=== PATIENT | female | born 1990 | race Caucasian/White ===

== ENCOUNTER 2017-05-10 02:15 | Emergency (ER) | payer OTHER, SELFPAY ==
[2017-05-10 02:17] VITALS: BP 136/72; PULSE 76; RESP 16; TEMP 36.7; O2SAT 100; BMI 25.3
[2017-05-10 02:59] LABS: Mucous, Urine 0 SEEN /hpf (<or=2+); Red Blood Cells-Urine 0 SEEN /hpf (0-5)
[2017-05-10 03:00] LABS: Color, Urine Yellow (Yellow); Glucose, Dipstick Normal (Normal); Ketone-Dipstick Negative (Negative); Leukocyte Esterase-Dipstick 100 /ul (Negative); Nitrite-Dipstick Negative (Negative); Occult Blood-Urine 25 /ul (Negative); Protein-Dipstick Negative (Negative); Urine Bilirubin Dipstick Negative (Negative); Urine Clarity Sl. Cloudy (Clear); Urine Urobilinogen Normal (Normal)
[2017-05-10 03:04] LABS: ALB/GLOB Ratio 1.3 RATIO (0.9-2.4); AST(SGOT) 18 U/L (15-37); Alanine Aminotransfer ALT/SGPT 33 U/L (13-56); Albumin, Serum 4.3 g/dL (3.2-5.0); Alkaline Phosphatase 71 U/L (45-117); Anion Gap 7 (5-15); BUN 15 mg/dL (7-18); BUN/Creat Ratio 16.9 RATIO (10-20); Calcium,Total 9.4 mg/dL (8.5-10.1); Chloride 106 mmol/L (98-107); Creatinine, Serum 0.88 mg/dL (0.55-1.02); EST Glomerular Filtration Rate 81 mL/min (>60); Est Glom Filt Rate - Afr Amer 98 mL/min (>60); Estimated Creatinine Clearance 82.92 ml/min; Globulin 3.3 g/dL (2.2-4.2); Glucose 91 mg/dL (70-110); Lipase 147 U/L (73-393); Protein, Total 7.6 g/dL (6.4-8.2); Sodium Level 142 mmol/L (136-145)
[2017-05-10 03:04] LABS: Internal QC Validated? YES +Cl - CLEAR BKGD; Pregnancy, Urine Negative Negative
[2017-05-10 03:05] LABS: Absolute Neutrophil Count 9.7 X10^3/uL (2.0-7.7); Basophil# 0.02 X10^3/uL; Basophil% 0.2 % (0-1); Eosinophil# 0.11 X10^3/uL; Eosinophils% 0.8 % (0-5); Hematocrit 45.4 % (37-47); Hemoglobin 15.3 g/dl (12.0-15.0); Lymphocyte % 17.8 % (19-41); Mean Corp Hgb Conc 33.7 g/gl (32-36); Mean Corpuscular Hgb 30.2 pg (27.0-32.0); Mean Corpuscular Volume 89.7 fL (81-99); Mean Platelet Vol. 11.1 fl (6.2-12.0); Monocyte# 0.83 X10^3/uL; Monocyte% 6.4 % (0-10); Neutrophil # 9.67 X10^3/uL (2.7-7.7); Neutrophil % 74.6 % (47-70); Platelet Count 162 K/mm3 (150-450); RBC Distribution Width CV 12.3 % (11.6-14.6); RBC Distribution Width SD 39.7 fl (35.1-43.9); Red Blood Count 5.06 M/mm3 (4.2-5.4)
[2017-05-10 03:06] LABS: POSITIVE COUNT NO; POSITIVE DIFFERENTIAL NO; POSITIVE MORPHOLOGY NO
[2017-05-10 03:11] LABS: Bacteria RARE /hpf (None Seen); Squamous Epithelial Cells - UA 0-5 SEEN /hpf (5-10); White Blood Cells 0-5 SEEN /hpf (0-5)
--- NOTE | 2017-05-10 03:37 | US_ITS ---
STUDY: ULTRASOUND GALLBLADDER REASON FOR VISIT: Female, 27 years old. Right upper quadrant pain TECHNIQUE: Ultrasound evaluation of the gallbladder was performed with real-time and static choi-scale imaging. TECHNICAL QUALITY: Adequate. COMPARISON: None. FINDINGS: Gallbladder: Normal distended gallbladder. The gallbladder wall measures 1.1 mm. There is a negative sonographic Alarcon's sign. There is no pericholecystic fluid. There are no gallstones. Common Bile Duct (C.B.D.): The common bile duct measures 3.3 mm. US/Gallbladder IMPRESSION: Normal gallbladder ultrasound examination. Electronically Signed: Yash Avila MD at 4:48 EST Tel , Service support ,
--- NOTE | 2017-05-10 04:39 | ED.VISSUMM ---
- ER Visit Summary Date of Service: 05/10/17 Chief Complaint: Abdominal pain History of Present Illness: The patient is a 27 F with abdominal pain this evening. It started around 12:30 AM. It lasted about an hour. The pain was in her epigastric region and radiated through to the back. She did have some nausea but no vomiting. She had diarrhea. Denies fevers. Denies any jaundice. Denies history of this in the past. Denies any medical or surgical history. Physical Examination: Afebrile and vital signs are unremarkable. The patient appears nontoxic and in no acute distress. Skin appears normal without pallor or jaundice. Heart regular. Lungs clear. Abdomen soft. Tender in the epigastric region. No guarding or rebound. Back is nontender. Test Results: White count 13 and hemoglobin 15.3. CMP normal. Lipase normal. Urinalysis unremarkable. test negative. Ultrasound was performed. Official read is pending, but I do not note any abnormalities on reviewing the images and the technicians notes are unremarkable. Emergency Department Course and Treatment: Patient declined pain and nausea medication. Her workup was unremarkable. Her white count is elevated, but this is nonspecific. Will start the patient on a short course of Pepcid. She will monitor for new or worsening symptoms. Return if they develop, otherwise I will refer her to primary care for follow-up. Treatment Plan: As above Disposition: Discharged Impression: 1. Abdominal pain This note was generated with Nextpeer dictation software. It may contain incorrect words, spelling, and punctuation that were not noted in review of the chart prior to signing ED Disposition - Plan for ED Patient: Chief Complaint: Abd Pain Referrals: Care Physician,No Primary [Primary Care Provider] -
--- NOTE | 2017-05-10 04:43 | ED.DEP ---
ED Disposition - Plan for ED Patient: Chief Complaint: Abd Pain Instructions: ED Abdominal Pain Unkn Cause Prescriptions: Famotidine [Pepcid] 20 mg PO BID #28 tab Referrals: Luis Kearns DO [NON-STAFF] -
[2017-05-10 04:55] VITALS: BP 110/62; PULSE 81; RESP 16; O2SAT 100
--- NOTE | 2017-05-10 04:55 | ED.RN ---
IV DC'ED, CATHETER INTACT, SMALL GAUZE DRESSING PLACED. DISCHARGE INSTRUCTIONS GIVEN TO AND REVIEWED WITH PATIENT, PATIENT DENIES QUESTIONS OR CONCERNS AND VOICES UNDERSTANDING OF DISCHARGE INSTRUCTIONS. PT AMBULATES OUT OF ROOM WITHOUT DIFFICULTY.
== END 2017-05-10 04:56 | disposition home or self-care (01) ==
PROVIDERS: Emergency Provider Emergency Medicine
DX: R10.13 Epigastric pain (principal); R11.0 Nausea
CPT/HCPCS: 76705; 80053; 81001; 81025; 83690; 85025; 99283; A4216